=== PATIENT | male | born 1970 | race Caucasian/White ===

== ENCOUNTER 2016-12-11 08:15 | Emergency (ER) | payer OTHER ==
[2016-12-11 08:29] VITALS: BP 167/88
--- NOTE | 2016-12-11 09:07 | UC ---
Throat Pain/Nasal Mayank HPI - HPI Summary HPI Summary: 46 y/o male presents to the urgent care c/o of sore throat for the past week. Pt states mild fever at home on and off, w/ nasal congestion w/ yellowish nasal discharge and mild MOONEY. Today he woke up with RT pink eye w/ yellowish discharge. Pt denies cough, SOB, chest pain, N/V/D. Pt has not other complains - History of Current Complaint Chief Complaint: UCRespiratory Stated Complaint: FLU SYMPTOMS Time Seen by Provider: 12/11/16 08:43 Hx Obtained From: Patient Onset/Duration: Gradual Onset, Lasting Days, Still Present Severity: Moderate Pain Intensity: 4 Pain Scale Used: 0-10 Numeric Associated Signs & Symptoms: Positive: Dysphagia, Hoarseness, Sinus Discomfort, Nasal Discharge, Fever - Epiglottits Risk Factors Epiglottis Risk Factors: Negative - Allergies/Home Medications Allergies/Adverse Reactions: Allergies Allergy/AdvReac Type Severity Reaction Status Date / Time Lansoprazole [From Prevacid] Allergy Hives Verified 06/26/13 08:19 Home Medications: Home Medications Metoprolol Succinate [Toprol Xl] 25 mg PO 12/11/16 [History] PMH/Surg Hx/FS Hx/Imm Hx Previously Healthy: Yes Cardiovascular History: Hypertension - Surgical History Surgical History: None - Family History Known Family History: Positive: Cardiac Disease, Hypertension - Social History Occupation: Employed Full-time Lives: With Family Alcohol Use: Rare Substance Use Type: None Smoking Status (MU): Never Smoked Tobacco Review of Systems Constitutional: Negative Skin: Negative Eyes: Eye Redness - w/ yellowish discharge ENT: Sore Throat, Nasal Discharge - yellowish nasal discharge, Sinus Congestion Respiratory: Negative Cardiovascular: Negative Gastrointestinal: Negative Genitourinary: Negative Motor: Negative Neurovascular: Negative Musculoskeletal: Negative Neurological: Headache - mild Psychological: Negative All Other Systems Reviewed And Are Negative: Yes Physical Exam Triage Information Reviewed: Yes Appearance: Well-Appearing, No Pain Distress, Well-Nourished, Obese Vital Signs: Initial Vital Signs Temp 98.2 F 12/11/16 08:16 Pulse 76 12/11/16 08:16 Resp 18 12/11/16 08:16 BP 167/88 12/11/16 08:16 Pulse Ox 97 12/11/16 08:16 Vital Signs Reviewed: Yes Eyes: Positive: Conjunctiva Inflamed - B/L PERRLA, EOMI, fundi grossly normal, RT conjuntiva injected w/ yellowish discharge. ENT: Positive: Normal ENT inspection, Hearing grossly normal, Pharyngeal erythema - no exudate, Nasal congestion - edematous nasal mucosa w/ moderate yellowish nasal drainage, TMs normal, Tonsillar swelling. Negative: Tonsillar exudate Dental Exam: Normal Neck exam: Normal Respiratory Exam: Normal Respiratory: Positive: Chest non-tender, Lungs clear, Normal breath sounds Cardiovascular Exam: Normal Cardiovascular: Positive: RRR, No Murmur, Pulses Normal Abdominal Exam: Normal Abdomen Description: Positive: Nontender, No Organomegaly, Soft. Negative: CVA Tenderness (R), CVA Tenderness (L) Bowel Sounds: Positive: Present Musculoskeletal Exam: Normal Musculoskeletal: Positive: Strength Intact, ROM Intact, No Edema Neurological Exam: Normal Psychological Exam: Normal Skin Exam: Normal Throat Pain/Nasal Course/Dx - Course Course Of Treatment: 46 y/o male presents to the urgent care c/o of sore throat for the past week. Pt states mild fever at home on and off, w/ nasal congestion w/ yellowish nasal discharge and mild MOONEY. Today he woke up with RT pink eye w/ yellowish discharge. Pt denies cough, SOB, chest pain, N/V/D. Hx obtained. Rapid strep ordered: result: negative. 1-RT eye w/ bacterial conjunctivitis, Rx ciprofloxacin opthalmic drops advised hand washing. 2- Bacterial sinusitis. Pt sinus congestion and moderate yellowish discharge x 1 week. Rx Amoxicillin PO. 3-Uncontroled HTN. Pt BP today 167/88. Pt taken 2 Hypertensive medications. Pt advised to decrease salt in diet and monitor BP and f/u with PCP for further management. - Differential Dx/Diagnosis Differential Diagnosis/HQI/PQRI: Mononucleosis, Otitis Media, Pharyngitis, Tonsillitis, URI, Other - conjunctivitis, sinusitis Provider Diagnoses: 1-Acute bacterial conjunctivitis. 2-Bacterial Sinusitis. 3 - Uncontrolled HTN Discharge - Discharge Plan Condition: Stable Disposition: HOME Prescriptions: Amoxicillin PO (*) [Amoxicillin 875 MG (*)] 875 mg PO BID #20 tab Ciprofloxacin 0.3% OPTH.WILLIAM* [Cipro 0.3% Opth*] 2 drop RIGHT EYE Q4H #1 btl Fluticasone NASAL SPRAY 50MCG* [Flonase NASAL SPRAY 50MCG*] 2 spray BOTH NARES DAILY #1 btl Patient Education Materials: Sinusitis (ED), Low Sodium Diet (ED), Conjunctivitis (ED) Forms: *Work Release Referrals: [facility] [place] [facility] [Outside] - 1 Week Non Staff,Doctor [Primary Care Provider] - Additional Instructions: Please take full course of antibiotic to avoid resistance. Take ibuprofen as instructed after meals to alleviate pain and swelling. If symptoms do not improve or worsen please return to the urgent care or f/u with your PCP for further evaluation and treatment
== END 2016-12-11 09:40 | disposition home or self-care (01) ==
LOC: UCEAST 08:15
DX: H10.31 Unspecified acute conjunctivitis, right eye (principal); I10 Essential (primary) hypertension; E66.9 Obesity, unspecified; J32.8 Other chronic sinusitis; B96.89 Other specified bacterial agents as the cause of diseases classified elsewhere
CPT/HCPCS: 87651; 99202; G0463

== ENCOUNTER 2019-07-12 17:53 | Emergency (ER) | payer OTHER ==
[2019-07-12 18:04] VITALS: BP 146/99
--- NOTE | 2019-07-12 18:11 | UC ---
FLU HPI - HPI Summary HPI Summary: fever and cough since 07/09/19, concerned with possible flu, sadaf diagnosed with the flu. - History of Current Complaint Chief Complaint: UCGeneralIllness Stated Complaint: FEVER Time Seen by Provider: 07/12/19 18:01 Hx Obtained From: Patient Onset/Duration: Sudden Onset, Lasting Days Severity Currently: Mild Severity Initially: Mild Pain Intensity: 3 Associated Signs & Symptoms: Positive: Fever, Cough, Sore Throat Related Hx: Possible Flu/Infectious Exposure - Allergy/Home Medications Allergies/Adverse Reactions: Allergies Allergy/AdvReac Type Severity Reaction Status Date / Time lansoprazole [From Prevacid] Allergy Hives Verified 07/12/19 18:04 Home Medications: Home Medications Valsartan [Diovan] 80 mg PO DAILY 06/26/13 [History Confirmed 07/12/19] Fluticasone NASAL SPRAY 50MCG* [Flonase NASAL SPRAY 50MCG*] 2 spray BOTH NARES DAILY #1 btl 12/11/16 [Rx Confirmed 07/12/19] Metoprolol Succinate [Toprol Xl] 25 mg PO DAILY 12/11/16 [History Confirmed 11/23] Ibuprofen TAB* [Motrin TAB* 800 MG] 800 mg PO ONCE 07/12/19 [History Confirmed 07/12/19] PMH/Surg Hx/FS Hx/Imm Hx Previously Healthy: Yes - Surgical History Surgical History: None - Family History Known Family History: Positive: Cardiac Disease, Hypertension - Social History Alcohol Use: Rare Substance Use Type: None Smoking Status (MU): Never Smoked Tobacco Review of Systems All Other Systems Reviewed And Are Negative: Yes Constitutional: Positive: Fever, Fatigue ENT: Positive: Sore Throat, Nasal Discharge Respiratory: Positive: Cough Neurological/Mental Status: Positive: Headache Is Patient Immunocompromised?: No Physical Exam Triage Information Reviewed: Yes Appearance: Well-Nourished, Ill-Appearing, Pain Distress Vital Signs: Initial Vital Signs Temp 97.8 F 07/12/19 18:00 Pulse 93 07/12/19 18:00 Resp 18 07/12/19 18:00 BP 146/99 07/12/19 18:00 Pulse Ox 99 07/12/19 18:00 Vital Signs Reviewed: Yes Eyes: Positive: Conjunctiva Inflamed ENT Exam: Normal ENT: Positive: Pharyngeal erythema, TM red Neck exam: Normal Respiratory Exam: Normal Respiratory: Positive: Chest non-tender, Lungs clear, Normal breath sounds Cardiovascular Exam: Normal Cardiovascular: Positive: RRR, No Murmur, Pulses Normal Abdominal Exam: Normal Abdomen Description: Positive: Nontender, No Organomegaly, Soft Musculoskeletal Exam: Normal Neurological Exam: Normal Psychological Exam: Normal Skin Exam: Normal Flu Course/Dx - Course Course Of Treatment: hx obtained, exam performed ,meds reviewed, rapid flu obtained. - Differential Dx/Diagnosis Differential Diagnosis/HQI/PQRI: Influenza Provider Diagnosis: Influenza B Discharge ED - Sign-Out/Discharge Documenting (check all that apply): Patient Departure All imaging exams completed and their final reports reviewed: No Studies - Discharge Plan Condition: Stable Disposition: HOME Patient Education Materials: Influenza (DC) Referrals: René Walden MD [Primary Care Provider] - Additional Instructions: 1. get plenty of rest 2. Increase fluids 3. Ibuprofen and tylenol for pain and fever 4. FOllow up if you develop severe respiratory difficulty or symtpoms are not manageable - Billing Disposition and Condition Condition: STABLE Disposition: Home
[2019-07-12 18:22] LABS: Influenza B Molecular POSITIVE (Negative)
[2019-07-12] MEDS ORDERED: Albuterol HFA INHALER* 8 gm MDI INH ONE (18:29)
== END 2019-07-12 18:39 | disposition home or self-care (01) ==
LOC: UCCORT 17:53
DX: J10.1 Influenza due to other identified influenza virus with other respiratory manifestations (principal); Z88.8 Allergy status to other drugs, medicaments and biological substances
CPT/HCPCS: 99212; A9270-GY; G0463